=== PATIENT | female | born 1980 | race Caucasian/White ===

== ENCOUNTER 2019-07-21 15:16 | Emergency (ER) | payer BC, OTHER ==
--- NOTE | 2019-07-21 16:34 | EDM.PDOC ---
ED HPI GENERAL MEDICAL PROBLEM - General Chief Complaint: Respiratory Problem Stated Complaint: SOB Time Seen by Provider: 07/21/19 15:25 Source of Information: Reports: Patient, Provider History Limitations: Reports: No Limitations - History of Present Illness INITIAL COMMENTS - FREE TEXT/NARRATIVE: The patient was sent over from the walk in clinic for possible COVID exposure. The patient was in [place] a couple weeks ago and she got home this weekend. She had a scratchy throat and felt some fullness in her upper chest and throat. She had a slight cough and subjective fever. She also had some shortness of breath. She stayed at home and felt good yesterday so she went to the gym this morning and she had more shortness of breath and fullness in her upper chest. She called a few clinics and got referred to different places. She went to the walk in clinic and they did a swab and then threw it away and sent her here. She has no medical problems and she does not smoke. She did have a 101 temp at the clinic. That was down to 99 here. Onset: Gradual Duration: Day(s): Location: Reports: Chest Quality: Reports: Other (tightness) Improves with: Reports: None Worsens with: Reports: None Associated Symptoms: Reports: Cough, Shortness of Breath. Denies: Fever/Chills , Headaches, Nausea/Vomiting - Related Data Allergies Allergy/AdvReac Type Severity Reaction Status Date / Time amoxicillin Allergy Diarrhea Verified 07/21/19 15:33 sulfamethoxazole Allergy tongue Verified 07/21/19 15:33 [From Bactrim] swelling trimethoprim [From Bactrim] Allergy tongue Verified 07/21/19 15:33 swelling Home Meds: Home Meds Docosahexanoic Acid/EPA [Fish Oil Concentrate Softgel] 750 mg PO DAILY 07/21/19 [History] Multivitamin [Multivitamins] 2 cap PO DAILY 07/21/19 [History] Past Medical History - Infectious Disease History Infectious Disease History: Reports: Chicken Pox - Past Surgical History Female Surgical History: Reports: Breast Implant Social & Family History - Family History Family Medical History: Noncontributory - Tobacco Use Smoking Status *Q: Former Smoker Years of Tobacco use: 20 Used Tobacco, but Quit: Yes Month/Year Tobacco Last Used: 07/2017 Tobacco Use Comment: Pt quit 2 years ago Second Hand Smoke Exposure: No - Caffeine Use Caffeine Use: Reports: Coffee - Recreational Drug Use Recreational Drug Use: No ED ROS GENERAL - Review of Systems Review Of Systems: See Below Constitutional: Reports: No Symptoms HEENT: Reports: No Symptoms Respiratory: Reports: Shortness of Breath, Cough Cardiovascular: Reports: No Symptoms Endocrine: Reports: No Symptoms GI/Abdominal: Reports: No Symptoms : Reports: No Symptoms ED EXAM, GENERAL - Physical Exam Exam: See Below Exam Limited By: No Limitations General Appearance: Alert, No Apparent Distress Ears: Normal External Exam Nose: Normal Inspection Throat/Mouth: Normal Inspection Head: Atraumatic, Normocephalic Neck: Normal Inspection Respiratory/Chest: No Respiratory Distress, Lungs Clear, Normal Breath Sounds Cardiovascular: Regular Rate, Rhythm, No Edema, No Murmur GI/Abdominal: Soft, Non-Tender, No Organomegaly, No Mass Course - Vital Signs Last Recorded V/S: Last Vital Signs Temp 99.8 F 07/21/19 15:25 Pulse 96 07/21/19 15:25 Resp 16 07/21/19 15:25 BP 135/89 07/21/19 15:25 Pulse Ox 100 07/21/19 15:25 - Orders/Labs/Meds Orders: Active Orders 24 hr Category Date Time Status CORONAVIRUS (COVID-19) PCR [MREF] Stat Lab 07/21/19 16:26 Ordered - Re-Assessments/Exams Free Text/Narrative Re-Assessment/Exam: 07/21/19 16:37 I will test her for coronovirus. Departure - Departure Time of Disposition: 16:40 Disposition: Home, Self-Care 01 Condition: Good Clinical Impression: Viral URI - Discharge Information *PRESCRIPTION DRUG MONITORING PROGRAM REVIEWED*: Not Applicable *COPY OF PRESCRIPTION DRUG MONITORING REPORT IN PATIENT CELIA: Not Applicable Referrals: PCP,None [Primary Care Provider] - Additional Instructions: We will call your results as soon as we know them. That may be a day or 2. Quarantine yourself in your house. Please return if you are worse. Sepsis Event Note - Evaluation Sepsis Screening Result: No Definite Risk - Focused Exam Vital Signs: Vital Signs Temp Pulse Resp BP Pulse Ox 07/21/19 15:25 99.8 F 96 16 135/89 100 Date Exam was Performed: 07/21/19 Time Exam was Performed: 16:28 - My Orders Last 24 Hours: My Active Orders 07/21/19 16:26 CORONAVIRUS (COVID-19) PCR [MREF] Stat - Assessment/Plan Last 24 Hours: My Active Orders 07/21/19 16:26 CORONAVIRUS (COVID-19) PCR [MREF] Stat
== END 2019-07-21 17:07 | disposition home or self-care (01) ==
LOC: JD.ED 15:16
DX: J06.9 Acute upper respiratory infection, unspecified (principal); Z87.891 Personal history of nicotine dependence; Z88.1 Allergy status to other antibiotic agents; Z88.2 Allergy status to sulfonamides; Z20.828 Contact with and (suspected) exposure to other viral communicable diseases
CPT/HCPCS: 99282; 99283; U0001; U0002